=== PATIENT | male | born 1945 | race Caucasian/White ===

== ENCOUNTER 2020-11-26 13:05 | Outpatient (CLI) | payer MEDICARE | END 2020-11-26 13:06 | disposition home or self-care (01) | LOC: RAD 13:05 | PROVIDERS: ATTEND Internal Medicine Pulmonary Disease | DX: R06.00 Dyspnea, unspecified (principal); I50.9 Heart failure, unspecified | CPT/HCPCS: 71046 ==

== ENCOUNTER 2020-11-26 14:53 | Inpatient (IN) | payer MEDICARE ==
[2020-11-26] MEDS ORDERED: Azithromycin 500 MG VIAL ONE (15:59)
[2020-11-26] MEDS ORDERED: Nitroglycerin 2% Ointment 1 INCH/1 GM Packet ONE (15:59)
[2020-11-26] MEDS ORDERED: Albuterol Sulfate 2.5 mg/0.5 ml Neb ONE (15:59)
[2020-11-26] MEDS ORDERED: cefTRIAXone\\ROCEPHIN 2 GM VIAL ONE (15:59)
[2020-11-26] MEDS ORDERED: Ipratropium Bromide 2.5 ml Neb ONE (15:59)
[2020-11-26] MEDS ORDERED: methylPREDNISolone Sod Succ/PF 125 MG/2 ML VIAL ONE (15:59)
[2020-11-26 16:17] LABS: #Eosinphils 0.1 thou/uL (0.0-0.7); #Lymphocytes 1.1 thou/uL (1.20-3.40); #Monocytes 0.9 thou/uL (0.11-0.59); %Basophils 0.3 % (0.0-1.0); %Eosinophils 0.9 % (0.0-10.0); %Lymphocytes 8.8 % (21.0-51.0); %Monocytes 7.2 % (0.0-10.0); %Neutrophils 82.9 % (42.0-75.0); Mean Corpuscular HGB CONC 32.2 g/dL (32.0-36.0); Mean Corpuscular Volume 90.1 fL (78.0-98.0); Mean Platelet Volume 8.2 fL (7.4-10.4); Platelet Count 245 thou/uL (130-400); RBC Distribution Width 15.9 % (11.5-14.5); Red Blood Cell (RBC) Count 4.48 mill/uL (4.70-6.10); White Blood Cell (WBC) Count 12.1 thou/uL (4.8-10.8)
[2020-11-26 18:14] LABS: ALT (SGPT) 19 U/L (8-55); AST (SGOT) 18 U/L (5-34); Albumin 4.1 g/dL (3.4-4.8); Alkaline Phosphatase 100 U/L (40-110); Anion Gap 16 mmol/L (10-20); BUN (Urea Nitrogen) 30 mg/dL (8.4-25.7); Bilirubin, Total 1.6 mg/dL (0.2-1.2); Calc. Creatinine Clearance 0 mL/min (70-130); Calcium 9.4 mg/dL (7.8-10.44); Carbon Dioxide 26 mmol/L (23-31); Chloride 105 mmol/L (98-107); Globulin 3.7 g/dL (2.4-3.5); Glucose 115 mg/dL (83-110); Potassium 4.2 mmol/L (3.5-5.1); Protein, Total 7.8 g/dL (5.8-8.1); Sodium 143 mmol/L (136-145)
[2020-11-26] MEDS ORDERED: Furosemide 40 MG/4 ML VIAL ONE (18:54)
[2020-11-26] MEDS ORDERED: Aspirin Chewable 81 MG TAB ONE (18:54)
[2020-11-26 20:10] LABS: SARS-CoV-2 NAA Rapid Test Not Detected (NotDetected)
[2020-11-26 21:05] LABS: Troponin I 0.021 ng/mL (< 0.028)
[2020-11-27 00:22] LABS: Troponin I 0.025 ng/mL (< 0.028)
[2020-11-27] MEDS ORDERED: Ondansetron PF 4 MG/2 ML Vial IVP PRN (01:02)
[2020-11-27 02:07] LABS: Bacteria/HPF None Seen HPF (None Seen); Bilirubin Negative (Negative); Blood, Urine Negative (Negative); Clarity Clear (Clear); Glucose, Urine (Dipstick) Normal (Negative); Ketone, Urine Negative (Negative); Leukocyte Negative Leu/uL (Negative); Nitrite Negative (Negative); Protein, Urine (Dipstick) Negative (Neg-Trace); RBC/HPF None Seen HPF (0-3); Specific Gravity, Urine 1.011 (1.002-1.036); Squamous Epithelial 0-3 HPF (0-3); Urobilinogen Normal mg/dL (Less than 2); WBC/HPF 0-3 HPF (0-3)
[2020-11-27 02:13] LABS: Urine Culture Reflex No No
[2020-11-27 04:18] LABS: #Lymphocytes 0.5 thou/uL (1.20-3.40); #Monocytes 0.1 thou/uL (0.11-0.59); %Lymphocytes 5.7 % (21.0-51.0); %Monocytes 0.9 % (0.0-10.0); %Neutrophils 93.4 % (42.0-75.0); Hemoglobin 12.3 g/dL (14.0-18.0); Mean Corpuscular HGB CONC 31.9 g/dL (32.0-36.0); Mean Corpuscular Hemoglobin 28.6 pg (27.0-31.0); Mean Corpuscular Volume 89.8 fL (78.0-98.0); Mean Platelet Volume 8.2 fL (7.4-10.4); Platelet Count 220 thou/uL (130-400); RBC Distribution Width 15.5 % (11.5-14.5); Red Blood Cell (RBC) Count 4.29 mill/uL (4.70-6.10); White Blood Cell (WBC) Count 8.6 thou/uL (4.8-10.8)
[2020-11-27 04:48] LABS: Anion Gap 16 mmol/L (10-20); BUN (Urea Nitrogen) 33 mg/dL (8.4-25.7); Calc. Creatinine Clearance 102 mL/min (70-130); Carbon Dioxide 25 mmol/L (23-31); Chloride 105 mmol/L (98-107); Glucose 130 mg/dL (83-110); Potassium 4.4 mmol/L (3.5-5.1); Sodium 142 mmol/L (136-145)
[2020-11-27] MEDS ORDERED: Furosemide 20 MG/2 ML VIAL SLOW IVP SCH (06:00)
[2020-11-27] MEDS: Enoxaparin Sodium 40 MG/0.4 ML SYRINGE SC SCH (08:03)
[2020-11-27] MEDS: methylPREDNISolone Sod Succ 40 MG VIAL IVP SCH ×2 (08:03→21:42)
[2020-11-27] MEDS ORDERED: Furosemide 40 MG/4 ML VIAL SLOW IVP SCH (11:30)
[2020-11-27] MEDS: Azithromycin 500 MG in Sodium Chloride 0.9% 250 ML 250 ML IVPB SCH (18:17)
[2020-11-27] MEDS: cefTRIAXone\\ROCEPHIN 1 GM in Sodium Chloride 0.9% 100 ML IVPB SCH (18:17)
[2020-11-27] MEDS ORDERED: Fluticasone Propionate Nasal Spray 16 gm Bottle NASAL PRN (21:12)
[2020-11-27] MEDS ORDERED: Atorvastatin Calcium 40 MG TAB PO SCH (21:30)
[2020-11-27] MEDS ORDERED: Metoprolol Tartrate 50 MG TAB PO SCH (21:30)
[2020-11-28] MEDS: Acetaminophen 325 MG TAB PO PRN ×2 (00:12→21:50)
[2020-11-28 04:08] LABS: #Lymphocytes 0.5 thou/uL (1.20-3.40); #Monocytes 0.6 thou/uL (0.11-0.59); %Basophils 0.1 % (0.0-1.0); %Eosinophils 0.1 % (0.0-10.0); %Lymphocytes 3.1 % (21.0-51.0); %Neutrophils 92.8 % (42.0-75.0); Mean Corpuscular HGB CONC 32.6 g/dL (32.0-36.0); Mean Corpuscular Volume 89.1 fL (78.0-98.0); Mean Platelet Volume 8.5 fL (7.4-10.4); Platelet Count 213 thou/uL (130-400); RBC Distribution Width 15.9 % (11.5-14.5); Red Blood Cell (RBC) Count 4.13 mill/uL (4.70-6.10); White Blood Cell (WBC) Count 15.1 thou/uL (4.8-10.8)
[2020-11-28 04:27] LABS: Anion Gap 17 mmol/L (10-20); BUN (Urea Nitrogen) 39 mg/dL (8.4-25.7); Calc. Creatinine Clearance 103 mL/min (70-130); Calcium 9.2 mg/dL (7.8-10.44); Carbon Dioxide 22 mmol/L (23-31); Chloride 108 mmol/L (98-107); Glucose 134 mg/dL (83-110); Potassium 4.3 mmol/L (3.5-5.1); Sodium 143 mmol/L (136-145)
[2020-11-28] MEDS: Furosemide 40 MG/4 ML VIAL SLOW IVP SCH ×2 (06:16→13:16)
[2020-11-28] MEDS: Enoxaparin Sodium 40 MG/0.4 ML SYRINGE SC SCH (08:37)
[2020-11-28] MEDS: Amlodipine 10 MG TAB PO SCH (08:37)
[2020-11-28] MEDS: Metoprolol Tartrate 50 MG TAB PO SCH ×2 (08:37→21:50)
[2020-11-28] MEDS: methylPREDNISolone Sod Succ 40 MG VIAL IVP SCH ×2 (08:37→21:50)
[2020-11-28] MEDS: Cholecalciferol 1,000 UNITS (25 MCG) TAB PO SCH (08:37)
[2020-11-28] MEDS: Terazosin HCl 1 MG CAP PO SCH (08:51)
[2020-11-28] MEDS: Azithromycin 500 MG in Sodium Chloride 0.9% 250 ML 250 ML IVPB SCH (16:37)
[2020-11-28] MEDS: cefTRIAXone\\ROCEPHIN 1 GM in Sodium Chloride 0.9% 100 ML IVPB SCH (16:37)
[2020-11-28] MEDS: Atorvastatin Calcium 40 MG TAB PO SCH (21:49)
[2020-11-29 04:24] LABS: #Lymphocytes 0.4 thou/uL (1.20-3.40); #Monocytes 0.6 thou/uL (0.11-0.59); #Neutrophils 12.4 thou/uL (1.40-6.50); %Lymphocytes 3.3 % (21.0-51.0); %Monocytes 4.8 % (0.0-10.0); %Neutrophils 91.9 % (42.0-75.0); Anion Gap 16 mmol/L (10-20); BUN (Urea Nitrogen) 47 mg/dL (8.4-25.7); Calc. Creatinine Clearance 97 mL/min (70-130); Calcium 9.3 mg/dL (7.8-10.44); Carbon Dioxide 23 mmol/L (23-31); Chloride 107 mmol/L (98-107); Glucose 131 mg/dL (83-110); Hemoglobin 12.3 g/dL (14.0-18.0); Mean Corpuscular HGB CONC 31.2 g/dL (32.0-36.0); Mean Corpuscular Hemoglobin 27.8 pg (27.0-31.0); Mean Platelet Volume 8.5 fL (7.4-10.4); Platelet Count 230 thou/uL (130-400); Potassium 4.3 mmol/L (3.5-5.1); RBC Distribution Width 15.9 % (11.5-14.5); Red Blood Cell (RBC) Count 4.44 mill/uL (4.70-6.10); Sodium 142 mmol/L (136-145); White Blood Cell (WBC) Count 13.5 thou/uL (4.8-10.8)
[2020-11-29] MEDS: Furosemide 40 MG/4 ML VIAL SLOW IVP SCH ×2 (06:19→15:51)
[2020-11-29] MEDS ORDERED: FLU VACC QS2021-22(65YR UP)/PF 240 MCG/0.7 ML SYRINGE IM ONE (09:00)
[2020-11-29] MEDS: Amlodipine 10 MG TAB PO SCH (09:01)
[2020-11-29] MEDS: Cholecalciferol 1,000 UNITS (25 MCG) TAB PO SCH (09:01)
[2020-11-29] MEDS: Metoprolol Tartrate 50 MG TAB PO SCH ×2 (09:01→22:01)
[2020-11-29] MEDS: Enoxaparin Sodium 40 MG/0.4 ML SYRINGE SC SCH (09:02)
[2020-11-29] MEDS: Terazosin HCl 1 MG CAP PO SCH (09:02)
[2020-11-29] MEDS: methylPREDNISolone Sod Succ 40 MG VIAL IVP SCH ×2 (09:02→22:02)
[2020-11-29] MEDS: Atorvastatin Calcium 40 MG TAB PO SCH (22:01)
[2020-11-29] MEDS: Cefuroxime Axetil 250 MG TAB PO SCH (22:02)
[2020-11-29] MEDS: Acetaminophen 325 MG TAB PO PRN (22:08)
[2020-11-30 04:18] LABS: #Lymphocytes 0.5 thou/uL (1.20-3.40); #Monocytes 0.5 thou/uL (0.11-0.59); #Neutrophils 11.1 thou/uL (1.40-6.50); %Eosinophils 0.2 % (0.0-10.0); %Lymphocytes 4.3 % (21.0-51.0); %Monocytes 4.2 % (0.0-10.0); %Neutrophils 91.3 % (42.0-75.0); Hemoglobin 12.8 g/dL (14.0-18.0); Mean Corpuscular HGB CONC 32.1 g/dL (32.0-36.0); Mean Corpuscular Volume 90.4 fL (78.0-98.0); Mean Platelet Volume 8.5 fL (7.4-10.4); Platelet Count 222 thou/uL (130-400); RBC Distribution Width 15.8 % (11.5-14.5); Red Blood Cell (RBC) Count 4.41 mill/uL (4.70-6.10); White Blood Cell (WBC) Count 12.1 thou/uL (4.8-10.8)
[2020-11-30 04:33] LABS: Anion Gap 14 mmol/L (10-20); BUN (Urea Nitrogen) 52 mg/dL (8.4-25.7); Calc. Creatinine Clearance 107 mL/min (70-130); Calcium 9.1 mg/dL (7.8-10.44); Carbon Dioxide 27 mmol/L (23-31); Chloride 106 mmol/L (98-107); Glucose 119 mg/dL (83-110); Potassium 4.2 mmol/L (3.5-5.1); Sodium 143 mmol/L (136-145)
[2020-11-30] MEDS: Furosemide 40 MG/4 ML VIAL SLOW IVP SCH ×2 (07:04→16:03)
[2020-11-30] MEDS: Metoprolol Tartrate 50 MG TAB PO SCH ×2 (09:09→20:56)
[2020-11-30] MEDS: Amlodipine 10 MG TAB PO SCH (09:09)
[2020-11-30] MEDS: Enoxaparin Sodium 40 MG/0.4 ML SYRINGE SC SCH (09:09)
[2020-11-30] MEDS: Terazosin HCl 1 MG CAP PO SCH (09:09)
[2020-11-30] MEDS: methylPREDNISolone Sod Succ 40 MG VIAL IVP SCH ×2 (09:09→20:56)
[2020-11-30] MEDS: Cefuroxime Axetil 250 MG TAB PO SCH ×2 (09:09→20:56)
[2020-11-30] MEDS: Cholecalciferol 1,000 UNITS (25 MCG) TAB PO SCH (09:09)
[2020-11-30] MEDS: Atorvastatin Calcium 40 MG TAB PO SCH (20:56)
[2020-12-01 04:06] LABS: #Lymphocytes 0.5 thou/uL (1.20-3.40); #Monocytes 0.7 thou/uL (0.11-0.59); %Basophils 0.1 % (0.0-1.0); %Eosinophils 0.2 % (0.0-10.0); %Monocytes 5.8 % (0.0-10.0); Hemoglobin 12.8 g/dL (14.0-18.0); Mean Corpuscular HGB CONC 31.9 g/dL (32.0-36.0); Mean Corpuscular Hemoglobin 28.8 pg (27.0-31.0); Mean Corpuscular Volume 90.3 fL (78.0-98.0); Mean Platelet Volume 8.7 fL (7.4-10.4); Platelet Count 204 thou/uL (130-400); RBC Distribution Width 15.7 % (11.5-14.5); Red Blood Cell (RBC) Count 4.46 mill/uL (4.70-6.10); White Blood Cell (WBC) Count 12.3 thou/uL (4.8-10.8)
[2020-12-01 04:10] LABS: Anion Gap 13 mmol/L (10-20); BUN (Urea Nitrogen) 57 mg/dL (8.4-25.7); Calc. Creatinine Clearance 102 mL/min (70-130); Calcium 9.2 mg/dL (7.8-10.44); Carbon Dioxide 29 mmol/L (23-31); Chloride 104 mmol/L (98-107); Glucose 119 mg/dL (83-110); Potassium 4.2 mmol/L (3.5-5.1); Sodium 142 mmol/L (136-145)
[2020-12-01] MEDS: Furosemide 40 MG/4 ML VIAL SLOW IVP SCH ×2 (05:47→13:29)
[2020-12-01] MEDS: Enoxaparin Sodium 40 MG/0.4 ML SYRINGE SC SCH (09:56)
[2020-12-01] MEDS: Cefuroxime Axetil 250 MG TAB PO SCH ×2 (09:56→22:11)
[2020-12-01] MEDS: Terazosin HCl 1 MG CAP PO SCH (09:56)
[2020-12-01] MEDS: Cholecalciferol 1,000 UNITS (25 MCG) TAB PO SCH (09:57)
[2020-12-01] MEDS: Metoprolol Tartrate 50 MG TAB PO SCH ×2 (09:57→22:12)
[2020-12-01] MEDS: Amlodipine 10 MG TAB PO SCH (09:57)
[2020-12-01] MEDS: methylPREDNISolone Sod Succ 40 MG VIAL IVP SCH ×2 (09:57→22:12)
[2020-12-01] MEDS: Atorvastatin Calcium 40 MG TAB PO SCH (22:11)
[2020-12-01] MEDS: hydrALAZINE 20 MG/ML VIAL SLOW IVP PRN (22:11)
[2020-12-01] MEDS: Apixaban 5 MG TAB PO SCH (22:12)
[2020-12-02 04:01] LABS: #Lymphocytes 0.5 thou/uL (1.20-3.40); #Monocytes 0.8 thou/uL (0.11-0.59); #Neutrophils 11.6 thou/uL (1.40-6.50); %Eosinophils 0.3 % (0.0-10.0); %Lymphocytes 3.7 % (21.0-51.0); %Monocytes 6.4 % (0.0-10.0); %Neutrophils 89.5 % (42.0-75.0); Hemoglobin 12.8 g/dL (14.0-18.0); Mean Corpuscular HGB CONC 31.9 g/dL (32.0-36.0); Mean Corpuscular Hemoglobin 28.4 pg (27.0-31.0); Mean Corpuscular Volume 88.8 fL (78.0-98.0); Mean Platelet Volume 8.9 fL (7.4-10.4); Platelet Count 197 thou/uL (130-400); RBC Distribution Width 15.6 % (11.5-14.5); Red Blood Cell (RBC) Count 4.51 mill/uL (4.70-6.10); White Blood Cell (WBC) Count 12.9 thou/uL (4.8-10.8)
[2020-12-02] MEDS: hydrALAZINE 20 MG/ML VIAL SLOW IVP PRN (04:12)
[2020-12-02 04:20] LABS: Anion Gap 15 mmol/L (10-20); BUN (Urea Nitrogen) 55 mg/dL (8.4-25.7); Calc. Creatinine Clearance 113 mL/min (70-130); Calcium 9.2 mg/dL (7.8-10.44); Carbon Dioxide 28 mmol/L (23-31); Chloride 103 mmol/L (98-107); Glucose 127 mg/dL (83-110); Sodium 142 mmol/L (136-145)
[2020-12-02] MEDS: Furosemide 40 MG/4 ML VIAL SLOW IVP SCH ×2 (05:51→14:35)
[2020-12-02] MEDS: Apixaban 5 MG TAB PO SCH ×2 (08:37→20:38)
[2020-12-02] MEDS: Cholecalciferol 1,000 UNITS (25 MCG) TAB PO SCH (08:37)
[2020-12-02] MEDS: methylPREDNISolone Sod Succ 40 MG VIAL IVP SCH ×2 (08:38→20:39)
[2020-12-02] MEDS: Cefuroxime Axetil 250 MG TAB PO SCH ×2 (08:38→20:38)
[2020-12-02] MEDS: Amlodipine 10 MG TAB PO SCH (08:38)
[2020-12-02] MEDS: Metoprolol Tartrate 50 MG TAB PO SCH ×2 (08:40→21:45)
[2020-12-02] MEDS: Terazosin HCl 1 MG CAP PO SCH (08:52)
[2020-12-02] MEDS ORDERED: Bisacodyl 10 MG SUPP PR PRN (14:55)
[2020-12-02] MEDS: Polyethylene Glycol 3350 17 GM Packet PO PRN (16:14)
[2020-12-02] MEDS: Atorvastatin Calcium 40 MG TAB PO SCH (20:38)
[2020-12-03 03:57] LABS: #Basophils 0.1 thou/uL (0.0-0.2); #Lymphocytes 0.3 thou/uL (1.20-3.40); #Monocytes 0.6 thou/uL (0.11-0.59); %Basophils 0.6 % (0.0-1.0); %Eosinophils 0.3 % (0.0-10.0); %Lymphocytes 2.5 % (21.0-51.0); %Monocytes 5.2 % (0.0-10.0); %Neutrophils 91.4 % (42.0-75.0); Hemoglobin 12.7 g/dL (14.0-18.0); Mean Corpuscular HGB CONC 32.2 g/dL (32.0-36.0); Mean Corpuscular Hemoglobin 28.8 pg (27.0-31.0); Mean Corpuscular Volume 89.6 fL (78.0-98.0); Mean Platelet Volume 8.8 fL (7.4-10.4); Platelet Count 185 thou/uL (130-400); RBC Distribution Width 15.9 % (11.5-14.5); Red Blood Cell (RBC) Count 4.42 mill/uL (4.70-6.10)
[2020-12-03 04:21] LABS: Anion Gap 14 mmol/L (10-20); BUN (Urea Nitrogen) 57 mg/dL (8.4-25.7); Calc. Creatinine Clearance 116 mL/min (70-130); Calcium 9.5 mg/dL (7.8-10.44); Carbon Dioxide 31 mmol/L (23-31); Chloride 101 mmol/L (98-107); Glucose 148 mg/dL (83-110); Potassium 3.9 mmol/L (3.5-5.1); Sodium 142 mmol/L (136-145)
[2020-12-03] MEDS: Furosemide 40 MG/4 ML VIAL SLOW IVP SCH (06:43)
[2020-12-03] MEDS: Metoprolol Tartrate 50 MG TAB PO SCH ×2 (07:54→20:51)
[2020-12-03] MEDS: Apixaban 5 MG TAB PO SCH ×2 (07:55→20:51)
[2020-12-03] MEDS: Terazosin HCl 1 MG CAP PO SCH (07:55)
[2020-12-03] MEDS: Amlodipine 10 MG TAB PO SCH (07:55)
[2020-12-03] MEDS: Polyethylene Glycol 3350 17 GM Packet PO PRN (07:55)
[2020-12-03] MEDS: Cholecalciferol 1,000 UNITS (25 MCG) TAB PO SCH (07:55)
[2020-12-03] MEDS: methylPREDNISolone Sod Succ 40 MG VIAL IVP SCH ×3 (07:55→20:51)
[2020-12-03] MEDS: Cefuroxime Axetil 250 MG TAB PO SCH ×2 (07:55→20:54)
[2020-12-03] MEDS ORDERED: Furosemide 40 MG/4 ML VIAL SLOW IVP SCH (09:00)
[2020-12-03] MEDS: AcetaZOLAMIDE 250 MG TAB PO SCH ×2 (09:47→20:51)
[2020-12-03] MEDS: Atorvastatin Calcium 40 MG TAB PO SCH (20:51)
[2020-12-04 04:04] LABS: #Lymphocytes 0.4 thou/uL (1.20-3.40); #Neutrophils 13.3 thou/uL (1.40-6.50); %Basophils 0.2 % (0.0-1.0); %Eosinophils 0.1 % (0.0-10.0); %Lymphocytes 2.8 % (21.0-51.0); %Monocytes 6.7 % (0.0-10.0); %Neutrophils 90.2 % (42.0-75.0); Hemoglobin 12.7 g/dL (14.0-18.0); Mean Corpuscular HGB CONC 31.3 g/dL (32.0-36.0); Mean Corpuscular Volume 89.4 fL (78.0-98.0); Platelet Count 179 thou/uL (130-400); RBC Distribution Width 15.6 % (11.5-14.5); Red Blood Cell (RBC) Count 4.55 mill/uL (4.70-6.10); White Blood Cell (WBC) Count 14.8 thou/uL (4.8-10.8)
[2020-12-04 04:27] LABS: Anion Gap 11 mmol/L (10-20); BUN (Urea Nitrogen) 57 mg/dL (8.4-25.7); Calc. Creatinine Clearance 115 mL/min (70-130); Carbon Dioxide 33 mmol/L (23-31); Chloride 100 mmol/L (98-107); Potassium 4.3 mmol/L (3.5-5.1); Sodium 140 mmol/L (136-145)
[2020-12-04 04:28] LABS: Calcium 9.2 mg/dL (7.8-10.44); Glucose 115 mg/dL (83-110)
[2020-12-04] MEDS: AcetaZOLAMIDE 250 MG TAB PO SCH ×2 (09:36→21:14)
[2020-12-04] MEDS: Cefuroxime Axetil 250 MG TAB PO SCH ×2 (09:36→21:14)
[2020-12-04] MEDS: Amlodipine 10 MG TAB PO SCH (09:36)
[2020-12-04] MEDS: Cholecalciferol 1,000 UNITS (25 MCG) TAB PO SCH (09:40)
[2020-12-04] MEDS: Metoprolol Tartrate 50 MG TAB PO SCH ×2 (09:40→21:29)
[2020-12-04] MEDS: Apixaban 5 MG TAB PO SCH ×2 (09:41→21:14)
[2020-12-04] MEDS: Polyethylene Glycol 3350 17 GM Packet PO PRN (09:41)
[2020-12-04] MEDS: methylPREDNISolone Sod Succ 40 MG VIAL IVP SCH ×2 (09:42→21:15)
[2020-12-04] MEDS: Terazosin HCl 1 MG CAP PO SCH (11:29)
[2020-12-04] MEDS: Furosemide 40 MG/4 ML VIAL SLOW IVP SCH (11:29)
[2020-12-04 11:53] LABS: SARS-CoV-2 PCR by NAA Not Detected (NotDetected)
[2020-12-04] MEDS: Atorvastatin Calcium 40 MG TAB PO SCH (21:14)
[2020-12-04] MEDS: Acetaminophen 325 MG TAB PO PRN (21:50)
[2020-12-05] MEDS: Furosemide 40 MG/4 ML VIAL SLOW IVP SCH ×2 (06:50→13:29)
[2020-12-05] MEDS: methylPREDNISolone Sod Succ 40 MG VIAL IVP SCH ×2 (08:17→20:51)
[2020-12-05] MEDS: AcetaZOLAMIDE 250 MG TAB PO SCH ×2 (08:17→20:52)
[2020-12-05] MEDS: Cholecalciferol 1,000 UNITS (25 MCG) TAB PO SCH (08:17)
[2020-12-05] MEDS: Amlodipine 10 MG TAB PO SCH (08:17)
[2020-12-05] MEDS: Apixaban 5 MG TAB PO SCH ×2 (08:17→20:52)
[2020-12-05] MEDS: Metoprolol Tartrate 50 MG TAB PO SCH ×2 (08:18→20:52)
[2020-12-05] MEDS: Terazosin HCl 1 MG CAP PO SCH (08:21)
[2020-12-05] MEDS: Cefuroxime Axetil 250 MG TAB PO SCH ×2 (08:21→20:54)
[2020-12-05] MEDS ORDERED: Metolazone 2.5 MG TAB PO SCH (08:30)
[2020-12-05] MEDS: Atorvastatin Calcium 40 MG TAB PO SCH (20:51)
[2020-12-06 04:26] LABS: Anion Gap 17 mmol/L (10-20); BUN (Urea Nitrogen) 55 mg/dL (8.4-25.7); Calc. Creatinine Clearance 120 mL/min (70-130); Calcium 9.1 mg/dL (7.8-10.44); Carbon Dioxide 29 mmol/L (23-31); Chloride 98 mmol/L (98-107); Glucose 137 mg/dL (83-110); Potassium 4.8 mmol/L (3.5-5.1); Sodium 139 mmol/L (136-145)
[2020-12-06 05:03] LABS: Anisocytosis SLIGHT = 6-15 cells (100X) (0-5/hpf); Elliptocytes SLIGHT = 2-5 cells (100X) (0-1/hpf); Eosinophils 1 % (0-10); Hemoglobin 13.4 g/dL (14.0-18.0); Lymphocytes 7 % (21-51); MDiff Complete? YES; Mean Corpuscular HGB CONC 31.2 g/dL (32.0-36.0); Mean Corpuscular Hemoglobin 28.3 pg (27.0-31.0); Mean Corpuscular Volume 90.8 fL (78.0-98.0); Mean Platelet Volume 11.2 fL (7.4-10.4); Monocytes 3 % (0-10); Myelocyte 2 % (0-0); Neutrophil 87 % (42-75); Platelet Count 81 thou/uL (130-400); Platelet Morphology Comment Appears Decreased; RBC Distribution Width 15.7 % (11.5-14.5); Red Blood Cell (RBC) Count 4.72 mill/uL (4.70-6.10); White Blood Cell (WBC) Count 17.1 thou/uL (4.8-10.8)
[2020-12-06] MEDS: Furosemide 40 MG/4 ML VIAL SLOW IVP SCH ×2 (06:14→12:11)
[2020-12-06] MEDS: Cefuroxime Axetil 250 MG TAB PO SCH ×2 (08:54→20:43)
[2020-12-06] MEDS: methylPREDNISolone Sod Succ 40 MG VIAL IVP SCH ×2 (08:54→20:44)
[2020-12-06] MEDS: Terazosin HCl 1 MG CAP PO SCH (08:54)
[2020-12-06] MEDS: AcetaZOLAMIDE 250 MG TAB PO SCH ×2 (08:55→20:44)
[2020-12-06] MEDS: Metolazone 2.5 MG TAB PO SCH (08:55)
[2020-12-06] MEDS: Amlodipine 10 MG TAB PO SCH (08:55)
[2020-12-06] MEDS: Metoprolol Tartrate 50 MG TAB PO SCH ×2 (08:55→20:45)
[2020-12-06] MEDS: Cholecalciferol 1,000 UNITS (25 MCG) TAB PO SCH (08:55)
[2020-12-06 09:10] LABS: Platelet Count 155 thou/uL (130-400)
[2020-12-06] MEDS: Apixaban 5 MG TAB PO SCH ×2 (09:41→20:44)
[2020-12-06] MEDS: Atorvastatin Calcium 40 MG TAB PO SCH (20:44)
[2020-12-06] MEDS: Acetaminophen 325 MG TAB PO PRN (22:26)
[2020-12-07 04:15] LABS: Anion Gap 14 mmol/L (10-20); BUN (Urea Nitrogen) 55 mg/dL (8.4-25.7); Calc. Creatinine Clearance 102 mL/min (70-130); Calcium 9.3 mg/dL (7.8-10.44); Carbon Dioxide 34 mmol/L (23-31); Chloride 94 mmol/L (98-107); Glucose 135 mg/dL (83-110); Potassium 3.8 mmol/L (3.5-5.1); Sodium 138 mmol/L (136-145)
[2020-12-07] MEDS: Furosemide 40 MG/4 ML VIAL SLOW IVP SCH ×2 (06:30→13:07)
[2020-12-07] MEDS: Terazosin HCl 1 MG CAP PO SCH (08:26)
[2020-12-07] MEDS: Metolazone 2.5 MG TAB PO SCH (08:26)
[2020-12-07] MEDS: Cefuroxime Axetil 250 MG TAB PO SCH ×2 (08:27→21:03)
[2020-12-07] MEDS: Apixaban 5 MG TAB PO SCH ×2 (08:27→21:03)
[2020-12-07] MEDS: Metoprolol Tartrate 50 MG TAB PO SCH ×2 (08:27→21:03)
[2020-12-07] MEDS: Cholecalciferol 1,000 UNITS (25 MCG) TAB PO SCH (08:27)
[2020-12-07] MEDS: Amlodipine 10 MG TAB PO SCH (08:27)
[2020-12-07] MEDS: AcetaZOLAMIDE 250 MG TAB PO SCH ×2 (08:27→21:02)
[2020-12-07] MEDS: methylPREDNISolone Sod Succ 40 MG VIAL IVP SCH ×2 (08:28→21:04)
[2020-12-07] MEDS: Atorvastatin Calcium 40 MG TAB PO SCH (21:03)
[2020-12-08] MEDS: Furosemide 40 MG/4 ML VIAL SLOW IVP SCH (06:16)
[2020-12-08] MEDS: Cefuroxime Axetil 250 MG TAB PO SCH ×2 (09:05→20:21)
[2020-12-08] MEDS: Metoprolol Tartrate 50 MG TAB PO SCH ×2 (09:05→20:22)
[2020-12-08] MEDS: Apixaban 5 MG TAB PO SCH ×2 (09:05→20:22)
[2020-12-08] MEDS: Terazosin HCl 1 MG CAP PO SCH (09:05)
[2020-12-08] MEDS: Cholecalciferol 1,000 UNITS (25 MCG) TAB PO SCH (09:05)
[2020-12-08] MEDS: Amlodipine 10 MG TAB PO SCH (09:05)
[2020-12-08] MEDS: methylPREDNISolone Sod Succ 40 MG VIAL IVP SCH (09:06)
[2020-12-08] MEDS: AcetaZOLAMIDE 250 MG TAB PO SCH ×2 (09:07→20:22)
[2020-12-08] MEDS: Atorvastatin Calcium 40 MG TAB PO SCH (20:21)
[2020-12-09 04:41] LABS: Anion Gap 15 mmol/L (10-20); BUN (Urea Nitrogen) 60 mg/dL (8.4-25.7); Calc. Creatinine Clearance 122 mL/min (70-130); Calcium 9.3 mg/dL (7.8-10.44); Carbon Dioxide 34 mmol/L (23-31); Chloride 93 mmol/L (98-107); Glucose 91 mg/dL (83-110); Potassium 3.5 mmol/L (3.5-5.1); Sodium 138 mmol/L (136-145)
[2020-12-09] MEDS: Terazosin HCl 1 MG CAP PO SCH (08:46)
[2020-12-09] MEDS: Cholecalciferol 1,000 UNITS (25 MCG) TAB PO SCH (08:46)
[2020-12-09] MEDS: AcetaZOLAMIDE 250 MG TAB PO SCH ×2 (08:46→20:16)
[2020-12-09] MEDS: Cefuroxime Axetil 250 MG TAB PO SCH ×2 (08:46→20:15)
[2020-12-09] MEDS: Apixaban 5 MG TAB PO SCH ×2 (08:46→20:15)
[2020-12-09] MEDS: Metoprolol Tartrate 50 MG TAB PO SCH ×2 (08:46→20:16)
[2020-12-09] MEDS: Amlodipine 10 MG TAB PO SCH (08:46)
[2020-12-09] MEDS: Furosemide 40 MG/4 ML VIAL SLOW IVP SCH (08:47)
[2020-12-09] MEDS: methylPREDNISolone Sod Succ 40 MG VIAL IVP SCH (08:47)
[2020-12-09] MEDS: Atorvastatin Calcium 40 MG TAB PO SCH (20:16)
[2020-12-10 08:58] LABS: BUN (Urea Nitrogen) 56 mg/dL (8.4-25.7); Calc. Creatinine Clearance 136 mL/min (70-130); Calcium 9.9 mg/dL (7.8-10.44); Glucose 114 mg/dL (83-110)
[2020-12-10 09:07] LABS: Anion Gap 16 mmol/L (10-20); Carbon Dioxide 33 mmol/L (23-31); Chloride 93 mmol/L (98-107); Potassium 3.1 mmol/L (3.5-5.1); Sodium 139 mmol/L (136-145)
[2020-12-10] MEDS: Amlodipine 10 MG TAB PO SCH (09:09)
[2020-12-10] MEDS: Apixaban 5 MG TAB PO SCH ×2 (09:09→20:49)
[2020-12-10] MEDS: Terazosin HCl 1 MG CAP PO SCH (09:09)
[2020-12-10] MEDS: AcetaZOLAMIDE 250 MG TAB PO SCH ×2 (09:09→20:49)
[2020-12-10] MEDS: Metolazone 2.5 MG TAB PO SCH (09:09)
[2020-12-10] MEDS: Cefuroxime Axetil 250 MG TAB PO SCH ×2 (09:09→20:49)
[2020-12-10] MEDS: Cholecalciferol 1,000 UNITS (25 MCG) TAB PO SCH (09:10)
[2020-12-10] MEDS: Furosemide 40 MG/4 ML VIAL SLOW IVP SCH (09:10)
[2020-12-10] MEDS: Metoprolol Tartrate 50 MG TAB PO SCH ×2 (09:10→20:49)
[2020-12-10 10:16] LABS: Band 5 % (5-11); Eosinophils 2 % (0-10); Hemoglobin 14.4 g/dL (14.0-18.0); Lymphocytes 8 % (21-51); MDiff Complete? YES; Mean Corpuscular HGB CONC 31.7 g/dL (32.0-36.0); Mean Corpuscular Volume 88.3 fL (78.0-98.0); Mean Platelet Volume 9.8 fL (7.4-10.4); Monocytes 10 % (0-10); Neutrophil 75 % (42-75); Platelet Count 118 thou/uL (130-400); Platelet Morphology Comment Appears Decreased; RBC Distribution Width 15.6 % (11.5-14.5); RBC Morphology Normal; Red Blood Cell (RBC) Count 5.16 mill/uL (4.70-6.10); White Blood Cell (WBC) Count 20.7 thou/uL (4.8-10.8)
[2020-12-10] MEDS: Acetaminophen 325 MG TAB PO PRN (19:43)
[2020-12-10] MEDS: Atorvastatin Calcium 40 MG TAB PO SCH (20:49)
[2020-12-11] MEDS: Amlodipine 10 MG TAB PO SCH (07:49)
[2020-12-11] MEDS: AcetaZOLAMIDE 250 MG TAB PO SCH ×2 (07:49→21:22)
[2020-12-11] MEDS: Terazosin HCl 1 MG CAP PO SCH (07:49)
[2020-12-11] MEDS: Apixaban 5 MG TAB PO SCH ×2 (07:49→21:22)
[2020-12-11] MEDS: Furosemide 40 MG/4 ML VIAL SLOW IVP SCH (07:50)
[2020-12-11] MEDS: Cholecalciferol 1,000 UNITS (25 MCG) TAB PO SCH (07:50)
[2020-12-11] MEDS: Metoprolol Tartrate 50 MG TAB PO SCH ×2 (07:50→21:22)
[2020-12-11] MEDS: Metolazone 2.5 MG TAB PO SCH (07:50)
[2020-12-11 07:51] LABS: Anion Gap 14 mmol/L (10-20); BUN (Urea Nitrogen) 55 mg/dL (8.4-25.7); Calc. Creatinine Clearance 133 mL/min (70-130); Calcium 9.6 mg/dL (7.8-10.44); Carbon Dioxide 33 mmol/L (23-31); Chloride 93 mmol/L (98-107); Glucose 94 mg/dL (83-110); Potassium 3.4 mmol/L (3.5-5.1); Sodium 137 mmol/L (136-145)
[2020-12-11 07:59] LABS: Hemoglobin 14.6 g/dL (14.0-18.0); Mean Corpuscular HGB CONC 32.9 g/dL (32.0-36.0); Mean Corpuscular Hemoglobin 28.9 pg (27.0-31.0); Mean Corpuscular Volume 87.9 fL (78.0-98.0); Mean Platelet Volume 10.3 fL (7.4-10.4); Platelet Count 101 thou/uL (130-400); RBC Distribution Width 15.5 % (11.5-14.5); Red Blood Cell (RBC) Count 5.03 mill/uL (4.70-6.10); White Blood Cell (WBC) Count 17.6 thou/uL (4.8-10.8)
[2020-12-11] MEDS: Acetaminophen 325 MG TAB PO PRN (08:03)
[2020-12-11 09:16] LABS: #Eosinphils 0.2 thou/uL (0.0-0.7); #Lymphocytes 1.8 thou/uL (1.20-3.40); #Monocytes 1.6 thou/uL (0.11-0.59); %Basophils 0.1 % (0.0-1.0); %Eosinophils 1.4 % (0.0-10.0); %Lymphocytes 10.1 % (21.0-51.0); %Monocytes 9.2 % (0.0-10.0); %Neutrophils 79.2 % (42.0-75.0); Eosinophils 2 % (0-10); Lymphocytes 8 % (21-51); MDiff Complete? YES; Monocytes 7 % (0-10); Neutrophil 79 % (42-75); Platelet Morphology Comment Appears Decreased; Polychromasia SLIGHT = 2-3 cells (100X) (0-2/hpf); Reactive Lymphocytes 4 % (0-10)
[2020-12-11] MEDS: Atorvastatin Calcium 40 MG TAB PO SCH (21:22)
[2020-12-11 21:58] LABS: SARS-CoV-2 PCR by NAA Not Detected (NotDetected)
[2020-12-12 04:27] LABS: #Eosinphils 0.2 thou/uL (0.0-0.7); #Neutrophils 13.3 thou/uL (1.40-6.50); %Eosinophils 1.3 % (0.0-10.0); %Lymphocytes 6.4 % (21.0-51.0); %Monocytes 6.7 % (0.0-10.0); %Neutrophils 85.6 % (42.0-75.0); Hemoglobin 14.3 g/dL (14.0-18.0); Mean Corpuscular HGB CONC 31.8 g/dL (32.0-36.0); Mean Corpuscular Hemoglobin 28.5 pg (27.0-31.0); Mean Corpuscular Volume 89.5 fL (78.0-98.0); Platelet Count 101 thou/uL (130-400); RBC Distribution Width 15.6 % (11.5-14.5); Red Blood Cell (RBC) Count 5.02 mill/uL (4.70-6.10); White Blood Cell (WBC) Count 15.6 thou/uL (4.8-10.8)
[2020-12-12 04:41] LABS: Anion Gap 14 mmol/L (10-20); BUN (Urea Nitrogen) 51 mg/dL (8.4-25.7); Calc. Creatinine Clearance 131 mL/min (70-130); Calcium 9.1 mg/dL (7.8-10.44); Carbon Dioxide 36 mmol/L (23-31); Chloride 91 mmol/L (98-107); Glucose 118 mg/dL (83-110); Sodium 138 mmol/L (136-145)
[2020-12-12 04:42] LABS: Potassium 2.8 mmol/L (3.5-5.1)
[2020-12-12] MEDS ORDERED: Electrolyte Replacement Protocol FS PRN (05:00)
[2020-12-12] MEDS: Potassium Chloride 20 MEQ TAB PO SCH ×2 (05:03→06:04)
[2020-12-12] MEDS: Potassium Chloride 40 MEQ in Sodium Chloride 0.9% 250 ML 250 ML IVPB SCH ×2 (05:42→09:17)
[2020-12-12] MEDS ORDERED: Magnesium 2 GM/50 ML 2 GM in Premix Bag 1 BAG IVPB SCH (08:00)
[2020-12-12] MEDS: Metoprolol Tartrate 50 MG TAB PO SCH ×2 (09:17→19:43)
[2020-12-12] MEDS: Amlodipine 10 MG TAB PO SCH (09:17)
[2020-12-12] MEDS: Furosemide 40 MG/4 ML VIAL SLOW IVP SCH (09:17)
[2020-12-12] MEDS: AcetaZOLAMIDE 250 MG TAB PO SCH (09:17)
[2020-12-12] MEDS: Cholecalciferol 1,000 UNITS (25 MCG) TAB PO SCH (09:17)
[2020-12-12] MEDS: Apixaban 5 MG TAB PO SCH (09:17)
[2020-12-12] MEDS: Terazosin HCl 1 MG CAP PO SCH (09:17)
[2020-12-12] MEDS: Apixaban 2.5 MG TAB PO SCH (19:43)
[2020-12-12] MEDS: Atorvastatin Calcium 40 MG TAB PO SCH (19:44)
[2020-12-12] MEDS: Acetaminophen 325 MG TAB PO PRN (22:05)
[2020-12-13 05:00] LABS: Chloride 87 mmol/L (98-107); Sodium 135 mmol/L (136-145)
[2020-12-13 05:01] LABS: Calcium 9.2 mg/dL (7.8-10.44); Glucose 108 mg/dL (83-110)
[2020-12-13 05:04] LABS: Calc. Creatinine Clearance 125 mL/min (70-130)
[2020-12-13 05:05] LABS: BUN (Urea Nitrogen) 53 mg/dL (8.4-25.7)
[2020-12-13 05:06] LABS: Magnesium 2.4 mg/dL (1.6-2.6)
[2020-12-13 05:12] LABS: Carbon Dioxide 35 mmol/L (23-31)
[2020-12-13 05:14] LABS: Potassium 2.9 mmol/L (3.5-5.1)
[2020-12-13 05:15] LABS: Anion Gap 16 mmol/L (10-20)
[2020-12-13] MEDS: Potassium Chloride 40 MEQ in Sodium Chloride 0.9% 250 ML 250 ML IVPB SCH ×2 (06:16→09:02)
[2020-12-13] MEDS: Amlodipine 10 MG TAB PO SCH (09:01)
[2020-12-13] MEDS: Cholecalciferol 1,000 UNITS (25 MCG) TAB PO SCH (09:01)
[2020-12-13] MEDS: Apixaban 2.5 MG TAB PO SCH ×2 (09:01→20:18)
[2020-12-13] MEDS: Furosemide 40 MG/4 ML VIAL SLOW IVP SCH (09:01)
[2020-12-13] MEDS: Metoprolol Tartrate 50 MG TAB PO SCH ×2 (09:01→20:18)
[2020-12-13] MEDS: Terazosin HCl 1 MG CAP PO SCH (09:08)
[2020-12-13 11:13] LABS: Actual Bicarbonate (HCO3a) 40.5 mEq/L (22-28); Base Excess (BEa) 14.4 mEq/L (-2.0 to +3.0); CO2 Tension 55.6 mmHg (35.0-45.0); Calcium, Ionized (arterial) 1.15 mmol/L (1.12-1.30); Hemoglobin (Hb) 13.7 g/dL (14.0-18.0); Potassium - ABG Lab 3.12 mmol/L (3.70-5.30); pH, Arterial 7.48 (7.35-7.45)
[2020-12-13 11:14] LABS: O2 Tension (PaO2), arterial 53.5 mmHg (> 70.0); Puncture Site RRA
[2020-12-13 14:09] VITALS: BMI 49.4
[2020-12-13] MEDS: Atorvastatin Calcium 40 MG TAB PO SCH (20:18)
[2020-12-13] MEDS: methylPREDNISolone Sod Succ 40 MG VIAL IVP SCH (20:18)
[2020-12-14 04:30] LABS: Anion Gap 16 mmol/L (10-20); BUN (Urea Nitrogen) 54 mg/dL (8.4-25.7); Calc. Creatinine Clearance 141 mL/min (70-130); Calcium 9.1 mg/dL (7.8-10.44); Carbon Dioxide 34 mmol/L (23-31); Chloride 88 mmol/L (98-107); Glucose 137 mg/dL (83-110); Magnesium 2.3 mg/dL (1.6-2.6); Potassium 3.3 mmol/L (3.5-5.1); Sodium 135 mmol/L (136-145)
[2020-12-14] MEDS ORDERED: Potassium Chloride 20 MEQ TAB PO SCH (07:00)
[2020-12-14] MEDS: Apixaban 2.5 MG TAB PO SCH ×2 (08:31→21:08)
[2020-12-14] MEDS: Metoprolol Tartrate 50 MG TAB PO SCH ×2 (08:32→21:08)
[2020-12-14] MEDS: Amlodipine 10 MG TAB PO SCH (08:32)
[2020-12-14] MEDS: Cholecalciferol 1,000 UNITS (25 MCG) TAB PO SCH (08:32)
[2020-12-14] MEDS: methylPREDNISolone Sod Succ 40 MG VIAL IVP SCH ×2 (08:33→21:09)
[2020-12-14] MEDS: Furosemide 40 MG/4 ML VIAL SLOW IVP SCH (08:33)
[2020-12-14] MEDS: Terazosin HCl 1 MG CAP PO SCH (08:34)
[2020-12-14] MEDS: Acetaminophen 325 MG TAB PO PRN (10:28)
[2020-12-14 12:48] LABS: Phosphorus 3.5 mg/dL (2.3-4.7)
[2020-12-14] MEDS: Atorvastatin Calcium 40 MG TAB PO SCH (21:08)
[2020-12-15] MEDS ORDERED: ALPRAZolam 0.5 MG TAB PO SCH (02:00)
[2020-12-15 03:45] LABS: Anion Gap 15 mmol/L (10-20); BUN (Urea Nitrogen) 65 mg/dL (8.4-25.7); Calc. Creatinine Clearance 133 mL/min (70-130); Calcium 9.4 mg/dL (7.8-10.44); Carbon Dioxide 36 mmol/L (23-31); Chloride 89 mmol/L (98-107); Glucose 132 mg/dL (83-110); Magnesium 2.4 mg/dL (1.6-2.6); Potassium 3.5 mmol/L (3.5-5.1); Sodium 136 mmol/L (136-145)
[2020-12-15] MEDS ORDERED: Potassium Chloride 20 MEQ TAB PO SCH (07:45)
[2020-12-15] MEDS: Terazosin HCl 1 MG CAP PO SCH (09:32)
[2020-12-15] MEDS: Apixaban 2.5 MG TAB PO SCH ×2 (09:32→21:08)
[2020-12-15] MEDS: Furosemide 40 MG/4 ML VIAL SLOW IVP SCH ×2 (09:35→21:07)
[2020-12-15] MEDS: Metoprolol Tartrate 50 MG TAB PO SCH ×2 (09:36→21:08)
[2020-12-15] MEDS: methylPREDNISolone Sod Succ 40 MG VIAL IVP SCH ×2 (09:36→21:07)
[2020-12-15] MEDS: Cholecalciferol 1,000 UNITS (25 MCG) TAB PO SCH (09:36)
[2020-12-15] MEDS: Amlodipine 10 MG TAB PO SCH (09:36)
[2020-12-15] MEDS: Azithromycin 500 MG in Sodium Chloride 0.9% 250 ML 250 ML IVPB SCH (11:36)
[2020-12-15] MEDS ORDERED: D5W-AA 4.25% with LYTES 1,000 ML BAG IV SCH (19:30)
[2020-12-15] MEDS: Cyanocobalamin (Vitamin B-12) 1,000 MCG TAB PO SCH (21:08)
[2020-12-15] MEDS: Atorvastatin Calcium 40 MG TAB PO SCH (21:08)
[2020-12-15] MEDS: Folic Acid 1 MG TAB PO SCH (21:08)
[2020-12-16 04:25] LABS: #Basophils 0.2 thou/uL (0.0-0.2); #Lymphocytes 0.2 thou/uL (1.20-3.40); #Monocytes 0.6 thou/uL (0.11-0.59); #Neutrophils 14.9 thou/uL (1.40-6.50); %Eosinophils 0.2 % (0.0-10.0); %Lymphocytes 1.2 % (21.0-51.0); %Monocytes 3.6 % (0.0-10.0); Hemoglobin 12.4 g/dL (14.0-18.0); Mean Corpuscular HGB CONC 32.7 g/dL (32.0-36.0); Mean Corpuscular Hemoglobin 28.7 pg (27.0-31.0); Mean Corpuscular Volume 87.9 fL (78.0-98.0); Mean Platelet Volume 9.8 fL (7.4-10.4); Platelet Count 106 thou/uL (130-400); RBC Distribution Width 15.7 % (11.5-14.5); Red Blood Cell (RBC) Count 4.33 mill/uL (4.70-6.10); White Blood Cell (WBC) Count 15.9 thou/uL (4.8-10.8)
[2020-12-16 04:35] LABS: Anion Gap 14 mmol/L (10-20); BUN (Urea Nitrogen) 70 mg/dL (8.4-25.7); Calc. Creatinine Clearance 122 mL/min (70-130); Calcium 9.3 mg/dL (7.8-10.44); Carbon Dioxide 37 mmol/L (23-31); Chloride 88 mmol/L (98-107); Glucose 179 mg/dL (83-110); Magnesium 2.5 mg/dL (1.6-2.6); Potassium 3.5 mmol/L (3.5-5.1); Sodium 135 mmol/L (136-145)
[2020-12-16] MEDS ORDERED: Potassium Chloride 20 MEQ TAB PO SCH (05:30)
[2020-12-16] MEDS: Multivit, Therapeutic 1 TAB PO SCH (08:32)
[2020-12-16] MEDS: Amlodipine 10 MG TAB PO SCH (08:32)
[2020-12-16] MEDS: Apixaban 2.5 MG TAB PO SCH ×2 (08:32→21:39)
[2020-12-16] MEDS: Metoprolol Tartrate 50 MG TAB PO SCH ×2 (08:32→21:39)
[2020-12-16] MEDS: Cholecalciferol 1,000 UNITS (25 MCG) TAB PO SCH (08:32)
[2020-12-16] MEDS: methylPREDNISolone Sod Succ 40 MG VIAL IVP SCH ×2 (08:33→20:34)
[2020-12-16] MEDS: Terazosin HCl 1 MG CAP PO SCH (08:33)
[2020-12-16] MEDS: Furosemide 40 MG/4 ML VIAL SLOW IVP SCH (08:33)
[2020-12-16] MEDS: Azithromycin 500 MG in Sodium Chloride 0.9% 250 ML 250 ML IVPB SCH (11:44)
[2020-12-16] MEDS ORDERED: VANCOMYCIN 2 GRAM/400 ML BAG 2 GM in Premix Bag 1 BAG IVPB SCH (12:00)
[2020-12-16] MEDS ORDERED: MEROPENEM 1 GM/50 ML 1 GM in Premix Bag 1 BAG IVPB SCH (14:00)
[2020-12-16] MEDS ORDERED: metroNIDAZOLE 500 MG in Premix Bag 1 BAG IVPB SCH (14:00)
[2020-12-16] MEDS ORDERED: Meropenem 1 GM in Sodium Chloride 0.9% 100 ML IVPB SCH (14:00)
[2020-12-16] MEDS: Lorazepam 2 MG/ML VIAL SLOW IVP PRN (18:40)
[2020-12-16] MEDS: Acetaminophen 325 MG TAB PO PRN (18:40)
[2020-12-16] MEDS: Morphine 4 MG/ML VIAL SLOW IVP PRN (20:34)
[2020-12-16] MEDS ORDERED: Aztreonam 2 GM in Sodium Chloride 0.9% 100 ML IVPB SCH (21:00)
[2020-12-16] MEDS: Cyanocobalamin (Vitamin B-12) 1,000 MCG TAB PO SCH (21:39)
[2020-12-16] MEDS: Folic Acid 1 MG TAB PO SCH (21:39)
[2020-12-16] MEDS: Atorvastatin Calcium 40 MG TAB PO SCH (21:39)
[2020-12-16] MEDS: MEROPENEM 1 GM/50 ML 1 GM in Premix Bag 1 BAG IVPB SCH (22:05)
[2020-12-17] MEDS: Morphine 4 MG/ML VIAL SLOW IVP PRN ×5 (00:36→23:12)
[2020-12-17 03:46] LABS: Anion Gap 12 mmol/L (10-20); BUN (Urea Nitrogen) 75 mg/dL (8.4-25.7); Calc. Creatinine Clearance 129 mL/min (70-130); Calcium 9.4 mg/dL (7.8-10.44); Carbon Dioxide 37 mmol/L (23-31); Chloride 92 mmol/L (98-107); Glucose 144 mg/dL (83-110); Potassium 3.8 mmol/L (3.5-5.1); Sodium 137 mmol/L (136-145)
[2020-12-17] MEDS: MEROPENEM 1 GM/50 ML 1 GM in Premix Bag 1 BAG IVPB SCH ×3 (09:05→22:15)
[2020-12-17] MEDS: Furosemide 40 MG/4 ML VIAL SLOW IVP SCH (09:11)
[2020-12-17] MEDS: methylPREDNISolone Sod Succ 40 MG VIAL IVP SCH ×2 (09:12→21:15)
[2020-12-17] MEDS: Terazosin HCl 1 MG CAP PO SCH (09:12)
[2020-12-17] MEDS: Cholecalciferol 1,000 UNITS (25 MCG) TAB PO SCH (09:13)
[2020-12-17] MEDS: Amlodipine 10 MG TAB PO SCH (09:13)
[2020-12-17] MEDS: Apixaban 2.5 MG TAB PO SCH ×2 (09:13→23:14)
[2020-12-17] MEDS: Metoprolol Tartrate 50 MG TAB PO SCH ×2 (09:13→23:15)
[2020-12-17] MEDS: Multivit, Therapeutic 1 TAB PO SCH (09:13)
[2020-12-17] MEDS: Azithromycin 500 MG in Sodium Chloride 0.9% 250 ML 250 ML IVPB SCH (11:30)
[2020-12-17 12:17] VITALS: BP 129/81
[2020-12-17] MEDS: Lorazepam 2 MG/ML VIAL SLOW IVP PRN ×3 (14:39→23:13)
[2020-12-17] MEDS: Folic Acid 1 MG TAB PO SCH (23:14)
[2020-12-17] MEDS: Cyanocobalamin (Vitamin B-12) 1,000 MCG TAB PO SCH (23:14)
[2020-12-18 00:03] LABS: Vancomycin, Trough 34.1 ug/mL
[2020-12-18 04:31] LABS: Anion Gap 14 mmol/L (10-20); BUN (Urea Nitrogen) 82 mg/dL (8.4-25.7); Calc. Creatinine Clearance 125 mL/min (70-130); Calcium 9.2 mg/dL (7.8-10.44); Carbon Dioxide 37 mmol/L (23-31); Chloride 92 mmol/L (98-107); Glucose 160 mg/dL (83-110); Magnesium 2.8 mg/dL (1.6-2.6); Potassium 4.1 mmol/L (3.5-5.1); Sodium 139 mmol/L (136-145)
[2020-12-18 05:15] LABS: Phosphorus 5.5 mg/dL (2.3-4.7)
[2020-12-18] MEDS: MEROPENEM 1 GM/50 ML 1 GM in Premix Bag 1 BAG IVPB SCH (06:13)
[2020-12-18] MEDS: Morphine 4 MG/ML VIAL SLOW IVP PRN ×2 (06:30→11:08)
[2020-12-18] MEDS: Lorazepam 2 MG/ML VIAL SLOW IVP PRN ×2 (06:30→11:09)
[2020-12-18] MEDS ORDERED: Morphine 4 MG/ML VIAL SLOW IVP PRN (08:15)
[2020-12-18 08:30] VITALS: TEMP 97
[2020-12-18] MEDS: Amlodipine 10 MG TAB PO SCH (10:18)
[2020-12-18] MEDS: Cholecalciferol 1,000 UNITS (25 MCG) TAB PO SCH (10:19)
[2020-12-18] MEDS: Metoprolol Tartrate 50 MG TAB PO SCH (10:19)
[2020-12-18] MEDS: Apixaban 2.5 MG TAB PO SCH (10:19)
[2020-12-18] MEDS: methylPREDNISolone Sod Succ 40 MG VIAL IVP SCH (10:19)
[2020-12-18] MEDS: Terazosin HCl 1 MG CAP PO SCH (10:19)
[2020-12-18] MEDS: Multivit, Therapeutic 1 TAB PO SCH (10:19)
[2020-12-18] MEDS: Furosemide 40 MG/4 ML VIAL SLOW IVP SCH (10:19)
[2020-12-18] MEDS: Azithromycin 500 MG in Sodium Chloride 0.9% 250 ML 250 ML IVPB SCH (11:06)
== END 2020-12-18 11:50 | disposition expired | DRG 291 ==
LOC: ERS 14:53 → IMCU/EMU 19:56
PROVIDERS: ADMIT Internal Medicine; ATTEND Internal Medicine
PROC: 5A09557 Assistance with Respiratory Ventilation, Greater than 96 Consecutive Hours, Continuous Positive Airway Pressure (ICD-10-PCS; principal; 2020-11-26)
DX: I13.0 Hypertensive heart and chronic kidney disease with heart failure and stage 1 through stage 4 chronic kidney disease, or unspecified chronic kidney disease (principal); I50.33 Acute on chronic diastolic (congestive) heart failure; J96.21 Acute and chronic respiratory failure with hypoxia; Z66 Do not resuscitate; Z51.5 Encounter for palliative care; J44.1 Chronic obstructive pulmonary disease with (acute) exacerbation; N17.9 Acute kidney failure, unspecified; E66.2 Morbid (severe) obesity with alveolar hypoventilation; E87.3 Alkalosis; E87.1 Hypo-osmolality and hyponatremia; Z68.43 Body mass index [BMI] 50.0-59.9, adult; Z20.822 Contact with and (suspected) exposure to COVID-19; N18.30 Chronic kidney disease, stage 3 unspecified; N40.0 Benign prostatic hyperplasia without lower urinary tract symptoms; D72.829 Elevated white blood cell count, unspecified; E11.22 Type 2 diabetes mellitus with diabetic chronic kidney disease; I48.0 Paroxysmal atrial fibrillation; K59.00 Constipation, unspecified; E87.6 Hypokalemia; D69.6 Thrombocytopenia, unspecified; F41.9 Anxiety disorder, unspecified; I07.1 Rheumatic tricuspid insufficiency; I16.0 Hypertensive urgency; Z79.51 Long term (current) use of inhaled steroids; Z79.899 Other long term (current) drug therapy; Z99.81 Dependence on supplemental oxygen; Z88.0 Allergy status to penicillin; Z95.0 Presence of cardiac pacemaker; Z80.9 Family history of malignant neoplasm, unspecified; Z87.891 Personal history of nicotine dependence
CPT/HCPCS: 36415; 36416; 36600; 71045; 71046; 80048; 80053; 80202; 81001; 82805; 83605; 83735; 83880; 84100; 84484; 85025; 87040; 87149; 93005; 93306; 93970; 94640; 94660; 96365; 96367; 96368; 96375; J0360; J0456; J0696; J1650; J1940; J2060; J2185; J2270; J2920; J2930; J3370; J3475; J3480; J3490; J7030; J7050; J7611; J7620; U0002; U0003; U0005